=== PATIENT | male | born 1990 | race African-American/Black ===

== ENCOUNTER 2019-07-29 09:16 | Day surgery (SDC) | payer OTHER ==
[2019-07-29] MEDS ORDERED: LACTATED RINGER'S 1,000 ML IV (10:30)
[2019-07-29] MEDS ORDERED: DIPHENHYDRAMINE 50 MG INJ IV (11:30)
[2019-07-29] MEDS ORDERED: HYDROmorphONE 1 MG/5 ML IV SYRINGE IV ×3 (11:30)
[2019-07-29] MEDS ORDERED: MEPERIDINE 25 MG INJ IV (11:30)
[2019-07-29] MEDS ORDERED: PROCHLORPERAZINE 10 MG INJ IV (11:30)
[2019-07-29] MEDS ORDERED: OXYCODONE/ACETAMINOPHEN (5/325) TAB PO (11:30)
[2019-07-29] MEDS ORDERED: FENTAnyl 50 MCG/ML VIAL IV ×3 (11:30)
[2019-07-29] MEDS ORDERED: MIDAZOLAM 1 MG/ML 2 ML INJ (11:47)
[2019-07-29] MEDS ORDERED: EPHEDrine 25 MG/5 ML SYG (11:47)
[2019-07-29] MEDS ORDERED: SEVOFLURANE 15 MIN (11:47)
[2019-07-29] MEDS ORDERED: FENTAnyl 50 MCG/ML VIAL (11:47)
[2019-07-29] MEDS: LIDOCAINE 1%/EPI (1:100,000) (MDV) 20 ML (11:50)
[2019-07-29] MEDS: OXYMETAZOLINE 0.05% NASAL SPRAY (15 ML) NASAL (11:50)
[2019-07-29] MEDS ORDERED: CEFAZOLIN 1 GM INJ (11:55)
[2019-07-29] MEDS ORDERED: LIDOCAINE 2% (SDV) 5 ML INJ (11:56)
[2019-07-29] MEDS ORDERED: PROPOFOL 40 ML (11:56)
[2019-07-29] MEDS ORDERED: DEXAMETHASONE 4 MG/ML 5 ML INJ (11:58)
[2019-07-29] MEDS ORDERED: ONDANSETRON 4 MG INJ (11:58)
[2019-07-29] MEDS ORDERED: SUCCINYLCHOLINE CHLORIDE 100 MG/5 ML SYG IV (12:06)
[2019-07-29] MEDS ORDERED: HYDROmorphONE 2 MG/ML SYG (13:00)
[2019-07-29] MEDS: hydrALAzine 20 MG INJ IV (13:35)
[2019-07-29] MEDS: ONDANSETRON 4 MG INJ IV (13:38)
== END 2019-07-29 15:05 | disposition home or self-care (01) ==
LOC: SDS 09:16
DX: J34.2 Deviated nasal septum (principal); J34.3 Hypertrophy of nasal turbinates
CPT/HCPCS: 30140